=== PATIENT | female | born 1985 | race African-American/Black ===

== ENCOUNTER 2018-11-22 02:02 | Emergency (ER) | payer OTHER ==
[~2018-11-22] VITALS: Ht 162.6 cm; Wt 133.4 kg
[2018-11-22] MEDS ORDERED: PRENATAL PO (02:16)
[2018-11-22 03:00] LABS: HEMATOCRIT 30.7 % (37.0-47.0); HEMOGLOBIN 10.6 gm/dL (12.0-15.0); MCH 32.4 pg (26.0-34.0); MCHC 34.4 g/dL (28.0-37.0); RBC 3.27 mil/uL (4.20-5.00); WBC 6.1 thou/uL (4.0-11.0)
[2018-11-22 03:10] LABS: CALCIUM 9.2 mg/dL (8.5-10.1); CREATININE 0.7 mg/dL (0.6-1.0); POTASSIUM 3.9 mmol/L (3.5-5.1)
[2018-11-22 05:07] VITALS: BP 124/76
== END 2018-11-22 05:10 | disposition home or self-care (01) ==
LOC: ER
PROVIDERS: Emergency Medicine
DX: O20.0 Threatened abortion (principal); Z3A.01 Less than 8 weeks gestation of pregnancy